=== PATIENT | male | born 1995 | race Caucasian/White ===

== ENCOUNTER 2017-02-15 07:35 | Emergency (ER) | payer OTHER ==
[2017-02-15 07:51] VITALS: BP 130/68
--- NOTE | 2017-02-15 08:14 | UC ---
Skin Complaint HPI - HPI Summary HPI Summary: WOKE UP THIS MORNING WITH LEFT EAR LOBE RED, SWOLLEN AND PAINFUL. HAD A SCRATCH ON THE FRONT OF HIS EARLOBE 2 DAYS AGO THAT IS HEALING. NO FEVER. NO H/O PRIOR ABSCESSES. - History of Current Complaint Chief Complaint: UCEar Time Seen by Provider: 02/15/17 08:07 Stated Complaint: LEFT EAR LOBE SWELLING Hx Obtained From: Patient Onset/Duration: Sudden Onset, Lasting Hours Timing: Constant Onset Severity: Moderate Current Severity: Moderate Pain Intensity: 8 Pain Scale Used: 0-10 Numeric Location: Discrete - LEFT EAR LOBE Character: Swelling, Pain, Redness Aggravating Factor(s): Touch Alleviating Factor(s): Nothing Associated Signs & Symptoms: Positive: Tenderness - Allergy/Home Medications Allergies/Adverse Reactions: Allergies Allergy/AdvReac Type Severity Reaction Status Date / Time Sesame Oil Allergy Unknown Hives Verified 02/15/17 07:45 Review of Systems Constitutional: Negative Skin: Other - REDNESS, SWELLING LEFT EAR LOBE Respiratory: Negative Cardiovascular: Negative Gastrointestinal: Negative All Other Systems Reviewed And Are Negative: Yes PMH/Surg Hx/FS Hx/Imm Hx Other Neurological History: ARNOLD CHIARI MALFORMATION - Surgical History Surgical History: None - Family History Known Family History: Positive: Hypertension Negative: Respiratory Disease - Social History Alcohol Use: Occasionally Substance Use Type: None Smoking Status (MU): Never Smoked Tobacco - Immunization History Most Recent Influenza Vaccination: none 2016 Physical Exam Triage Information Reviewed: Yes Appearance: Well-Appearing, No Pain Distress, Well-Nourished Vital Signs: Initial Vital Signs Temp 97.8 F 02/15/17 07:46 Pulse 63 02/15/17 07:46 Resp 18 02/15/17 07:46 BP 130/68 02/15/17 07:46 Pulse Ox 100 02/15/17 07:46 Vital Signs Reviewed: Yes Eyes: Positive: Conjunctiva Clear ENT: Positive: Hearing grossly normal, Other - LEFT EAR LOBE EDEMATOUS WITH TENDER, FLUCTUANCE. HEALING ABRASION ANTERIORLY Neck: Positive: Supple Respiratory: Positive: No respiratory distress, No accessory muscle use Cardiovascular: Positive: Pulses Normal Abdomen Description: Positive: Soft Neurological: Positive: Alert Psychological: Positive: Age Appropriate Behavior Skin: Positive: Other - HEALING ABRASION ANTERIOR LEFT EAR LOBE. LOBE ERYTHEMATOUS AND EDEMATOUS Course/Dx - Course Course Of Treatment: ABSCESS I&D USING 11 BLADE. PUS EXPRESSED. SPECIMEN SENT FOR CULTURE. DRESSING APPLIED. BACTRIM BID. F/U IF NEEDED. - Diagnoses Provider Diagnoses: ABSCESS I&D LEFT EAR LOBE Discharge - Discharge Plan Condition: Stable Disposition: HOME Prescriptions: Sulfamethox/Trimethoprim DS* [Bactrim DS 800/160 TAB*] 1 tab PO BID #20 tab Patient Education Materials: Abscess (ED) Referrals: Non Staff,Doctor [Primary Care Provider] - Additional Instructions: TAKE ANTIBIOTICS TWICE DAILY FOR FULL 10 DAYS. OTC MEDS FOR DISCOMFORT WARM/HOT COMPRESSES AT LEAST 4 TIMES DAILY CHANGE BANDAGE DAILY AND NEEDED IF BECOMES SOILED OR WET SPECIMEN SENT FOR CULTURE SEEK FOLLOW-UP HERE OR WITH STUDENT HEALTH IF YOU DEVELOP FURTHER SPREADING REDNESS OF THE SKIN, CONTINUED PURULENT DRAINAGE, FEVER, INCREASED PAIN OR ANY OTHER CONCERNING SYMPTOMS.
== END 2017-02-15 09:00 | disposition home or self-care (01) ==
LOC: UCCORT 07:35
DX: H60.02 Abscess of left external ear (principal)
CPT/HCPCS: 69000; 87070; 87205; 87640; 87641; 99212; G0463

== ENCOUNTER 2017-05-23 11:36 | Emergency (ER) | payer OTHER ==
[2017-05-23 12:57] VITALS: BP 129/73
--- NOTE | 2017-05-23 13:09 | UC ---
FLU HPI - HPI Summary HPI Summary: 21 y/o male presents to the urgent care c/o dry cough, nasal congestion, RUDD, body aches, fever and nausea since yesterday. Pt reports fever of 102F last night. He has taken Tylenol PO to alleviate symptoms. Last dose at 0900AM this morning. Pt denies SOB, chest pain, abdominal pain, vomiting or diarrhea. - History of Current Complaint Chief Complaint: UCRespiratory Stated Complaint: FEVER/RUDD/VOMITING Time Seen by Provider: 05/23/17 13:07 Hx Obtained From: Patient Onset/Duration: Gradual Onset, Lasting Days - 1 day, Still Present Severity Currently: Mild Severity Initially: Mild Pain Intensity: 4 Pain Scale Used: 0-10 Numeric Associated Signs & Symptoms: Positive: Fever, Myalgia, Cough, Nasal Congestion, Headache - Risk Factors Influenza Risk Factors: Negative - Allergy/Home Medications Allergies/Adverse Reactions: Allergies Allergy/AdvReac Type Severity Reaction Status Date / Time sesame oil Allergy Hives Verified 05/23/17 12:49 Home Medications: Home Medications Acetaminophen [APAP] 650 mg PO 05/23/17 [History] PMH/Surg Hx/FS Hx/Imm Hx Previously Healthy: Yes - Pt deneis PMHX - Surgical History Surgical History: None - Family History Known Family History: Positive: Hypertension Negative: Respiratory Disease - Social History Occupation: Student Lives: Dormitory/Roommates Alcohol Use: Occasionally Substance Use Type: None Smoking Status (MU): Never Smoked Tobacco - Immunization History Most Recent Influenza Vaccination: none 2017 Vaccination Up to Date: Yes Review of Systems Constitutional: Fever, Chills, Fatigue, Other - body aches Skin: Negative Eyes: Negative ENT: Nasal Discharge, Sinus Congestion Respiratory: Cough Cardiovascular: Negative Gastrointestinal: Negative Genitourinary: Negative Motor: Negative Neurovascular: Negative Musculoskeletal: Negative Neurological: Headache Psychological: Negative Is Patient Immunocompromised?: No All Other Systems Reviewed And Are Negative: Yes Physical Exam Triage Information Reviewed: Yes Vital Signs: Initial Vital Signs Temp 102.3 F 05/23/17 12:50 Pulse 104 05/23/17 12:50 Resp 16 05/23/17 12:50 BP 129/73 05/23/17 12:50 Pulse Ox 100 05/23/17 12:50 - Additional Comments VITAL SIGNS: Reviewed. GENERAL: Patient is a well developed and nourished male who is sitting comfortable in the examining table. Patient is not in any acute respiratory distress. HEAD AND FACE: No signs of trauma. No ecchymosis, hematomas or skull depressions. No sinus tenderness. edematous erythematous nasal mucosa with yellowish discharge, EYES: PERRLA, EOMI x 2, No injected conjunctiva, clear watery eyes, no nystagmus. No photophobia. EARS: Hearing grossly intact. Ear canals and tympanic membranes are within normal limits. MOUTH: Positive pharynx with erythema, no exudates,no palatal petechiae. no B/ L tonsillar enlargement Uvula in midline. NECK: Supple, trachea is midline, Positive anterior cervical lymphadenopathy, no JVD, no carotid bruit, no c-spine tenderness, neck with full ROM. No meningeal signs, no Kernig's or brudzinskis signs. CHEST: Symmetric, no tenderness at palpation LUNGS: Clear to auscultation bilaterally. No wheezing or crackles. CVS: Regular rate and rhythm, S1 and S2 present, no murmurs or gallops appreciated. ABDOMEN: Soft, non-tender. No signs of distention. No rebound no guarding, and no masses palpated. Bowel sounds are normal. EXTREMITIES: FROM in all major joints, no edema, no cyanosis or clubbing. NEURO: Alert and oriented x 3. No acute neurological deficits. Speech is normal and follows commands. SKIN: Dry and warm Flu Course/Dx - Course Course Of Treatment: 21 y/o male presents to the urgent care c/o dry cough, nasal congestion, RUDD, body aches, fever and nausea since yesterday. Pt reports fever of 102F last night. He has taken Tylenol PO to alleviate symptoms. Last dose at 0900AM this morning. Pt denies SOB, chest pain, abdominal pain, vomiting or diarrhea. Hx obtained. Pt w/ URI on examination. Influenza A&B ordered: result: Influenza B positive.Pt Rx Tamiflu and ibuprofen PO to alleviates symptoms. Advised on hand washing and wear a mask to avoid spreading. Pt advised to rest, increase fluid intake, eat well and avoid strenuous exercise. If symptoms do not improve or worsen advised to return to the urgent care or f/u with her PCP for further evaluation and treatment. Pt understood and agreed with plan of care. - Differential Dx/Diagnosis Differential Diagnosis/HQI/PQRI: Bronchitis, Influenza, Pneumonia, Upper Respiratory Infection Provider Diagnoses: 1- Influenza B. 2-Fever Discharge - Discharge Plan Condition: Stable Disposition: HOME Prescriptions: Ibuprofen TAB* [Motrin TAB* 800 MG] 800 mg PO Q6H PRN #20 tab PRN Reason: Fever Oseltamivir CAP* [Tamiflu CAP*] 75 mg PO BID #10 cap Patient Education Materials: Influenza (ED) Forms: *School Release Referrals: [facility] [Outside] - 3 Days Additional Instructions: 1- Please take the full course of the antiviral to avoid resistance. Encourage hand washing and wear a mask to avoid spreading. 2-Please take Ibuprofen PO q6-8hrs prn as instructed after meals to alleviate fever, and sore throat. Increase fluid intake, eat well, rest and avoid strenuous exercise 3-If symptoms do not improve or worsen please return to the urgent care or f/u with your PCP in 2 days for further evaluation and treatment.
[2017-05-23] MEDS ORDERED: Ibuprofen TAB* 400 MG PO ONE (13:13)
== END 2017-05-23 13:40 | disposition home or self-care (01) ==
LOC: UCCORT 11:36
DX: J10.1 Influenza due to other identified influenza virus with other respiratory manifestations (principal); R50.9 Fever, unspecified
CPT/HCPCS: 87502; 99212; A9270-GY; G0463